=== PATIENT | male | born 1950 | race Caucasian/White ===

== ENCOUNTER → 2017-05-25 | Outpatient (CLI) | payer MEDICARE, OTHER ==
[~2017-05-25] MED LIST: ACET500C3 PO; CHOL200024 PO; DUTA0.5C PO; FURO80TA77 PO; GABA-826 PO; LEVO150T PO; LORA10TA3 PO; OMEG1CAP24 PO; PREG25CA PO; TAMS-11 PO; TAMS0.4C2 PO; TRAM50TA2 PO; [UNRECOGNIZED DRUG - CODE]; [UNRECOGNIZED DRUG - CODE] PO
== END | disposition home or self-care (01) ==
LOC: PETCFH 09:28
PROVIDERS: ATTEND Specialist
DX: C43.71 Malignant melanoma of right lower limb, including hip (principal)
CPT/HCPCS: 78816; A9552

== ENCOUNTER 2017-09-28 17:25 | Emergency (ER) | payer MEDICARE, OTHER ==
[~2017-09-28] VITALS: Ht 182.9 cm; Wt 96.0 kg
[2017-09-28 17:55] LABS: HEMATOCRIT 44.5 % (39.2-51.8); HEMOGLOBIN 15.2 g/dL (13.7-18.0); WHITE BLOOD COUNT 5.9 x10^3/uL (3.4-10)
[2017-09-28 18:06] LABS: ASPARTATE AMINO TRANSFERASE 30 U/L (15-37); BLOOD UREA NITROGEN 17 mg/dL (7-18)
[2017-09-28 19:42] VITALS: BP 125/69
== END 2017-09-28 20:18 | disposition home or self-care (01) ==
LOC: ED 20:12
DX: H57.8 Other specified disorders of eye and adnexa (principal); J32.9 Chronic sinusitis, unspecified; E03.9 Hypothyroidism, unspecified; N40.0 Benign prostatic hyperplasia without lower urinary tract symptoms; Z85.820 Personal history of malignant melanoma of skin
CPT/HCPCS: 36415; 70450; 71010; 80053; 85025; 93005; 99285

== ENCOUNTER → 2018-02-15 | Outpatient (CLI) | payer MEDICARE, OTHER | END | disposition home or self-care (01) | LOC: PETCFH 08:34 | PROVIDERS: ATTEND Specialist | DX: C43.71 Malignant melanoma of right lower limb, including hip (principal) | CPT/HCPCS: 78816; A9552 ==

== ENCOUNTER → 2018-06-13 | Outpatient (CLI) | payer MEDICARE, OTHER | END | disposition home or self-care (01) | LOC: CFH 10:10 | PROVIDERS: ATTEND Nurse Practitioner Primary Care | DX: R05 Cough (principal); E55.9 Vitamin D deficiency, unspecified; E03.9 Hypothyroidism, unspecified; E78.2 Mixed hyperlipidemia; Z79.899 Other long term (current) drug therapy | CPT/HCPCS: 71046 ==

== ENCOUNTER → 2018-09-13 | Outpatient (CLI) | payer MEDICARE, OTHER | END | disposition home or self-care (01) | LOC: CFH 08:44 | PROVIDERS: ATTEND Internal Medicine | DX: E03.4 Atrophy of thyroid (acquired) (principal); E03.9 Hypothyroidism, unspecified; E78.2 Mixed hyperlipidemia; E55.9 Vitamin D deficiency, unspecified; Z79.899 Other long term (current) drug therapy | CPT/HCPCS: 76536 ==

== ENCOUNTER → 2018-11-17 | Outpatient (CLI) | payer MEDICARE, OTHER | END | disposition home or self-care (01) | LOC: PETCFH 07:26 | PROVIDERS: ATTEND Specialist | DX: C43.71 Malignant melanoma of right lower limb, including hip (principal) | CPT/HCPCS: 78816; A9552 ==

== ENCOUNTER → 2019-02-02 | Outpatient (CLI) | payer MEDICARE, OTHER ==
[~2019-02-02] MED LIST changes: +LORA-247 PO; -LORA10TA3 PO; +OMNIPAQUE 350 MG/ML, 100ML BOTTLE ONE
[2019-02-02 11:30] LABS: CREATININE 1.13 mg/dL (0.7-1.3)
== END | disposition home or self-care (01) ==
LOC: RAD 10:53
PROVIDERS: ATTEND Specialist
DX: C43.71 Malignant melanoma of right lower limb, including hip (principal); R59.1 Generalized enlarged lymph nodes; M47.816 Spondylosis without myelopathy or radiculopathy, lumbar region; K40.90 Unilateral inguinal hernia, without obstruction or gangrene, not specified as recurrent
CPT/HCPCS: 36415; 71260; 74177; 82565; Q9967

== ENCOUNTER → 2019-05-21 | Outpatient (CLI) | payer MEDICARE, OTHER | END | disposition home or self-care (01) | LOC: CFH 12:31 | PROVIDERS: ATTEND Specialist | DX: K44.9 Diaphragmatic hernia without obstruction or gangrene (principal); C43.71 Malignant melanoma of right lower limb, including hip | CPT/HCPCS: 71260; 74177; Q9967 ==

== ENCOUNTER → 2019-10-03 | Outpatient (CLI) | payer MEDICARE, OTHER | END | disposition home or self-care (01) | LOC: CFH 13:58 | PROVIDERS: ATTEND Specialist | DX: C43.71 Malignant melanoma of right lower limb, including hip (principal); F17.200 Nicotine dependence, unspecified, uncomplicated | CPT/HCPCS: 71260; 74177; Q9967 ==

== ENCOUNTER → 2020-01-16 | Outpatient (CLI) | payer MEDICARE, OTHER ==
[~2020-01-16] MED LIST changes: -OMNIPAQUE 350 MG/ML, 100ML BOTTLE ONE
== END | disposition home or self-care (01) ==
LOC: PETCFH 08:43
PROVIDERS: ATTEND Specialist
DX: C43.71 Malignant melanoma of right lower limb, including hip (principal)
CPT/HCPCS: 78815; A9552

== ENCOUNTER → 2020-05-14 | Outpatient (CLI) | payer MEDICARE, OTHER | END | disposition home or self-care (01) | LOC: PETCFH 12:22 | PROVIDERS: ATTEND Specialist | DX: C43.71 Malignant melanoma of right lower limb, including hip (principal); K76.0 Fatty (change of) liver, not elsewhere classified; R59.0 Localized enlarged lymph nodes | CPT/HCPCS: 78816; A9552 ==

== ENCOUNTER → 2020-05-20 | Outpatient (CLI) | payer MEDICARE, OTHER ==
[~2020-05-20] MED LIST changes: +GADOTERATE 10 MMOL/20 ML SYR ONE
== END | disposition home or self-care (01) ==
LOC: RAD 12:14 → EDSTATUS 12:45
PROVIDERS: ATTEND Specialist
DX: C43.71 Malignant melanoma of right lower limb, including hip (principal)
CPT/HCPCS: 70553; A9575

== ENCOUNTER → 2020-08-27 | Outpatient (CLI) | payer MEDICARE, OTHER ==
[~2020-08-27] MED LIST changes: -GADOTERATE 10 MMOL/20 ML SYR ONE
== END | disposition home or self-care (01) ==
LOC: PETCFH 07:32
PROVIDERS: ATTEND Specialist
DX: C43.71 Malignant melanoma of right lower limb, including hip (principal); R19.00 Intra-abdominal and pelvic swelling, mass and lump, unspecified site
CPT/HCPCS: 78816; A9552

== ENCOUNTER → 2021-05-04 | Outpatient (CLI) | payer MEDICARE, OTHER | END | disposition home or self-care (01) | LOC: CFH 14:38 | PROVIDERS: ATTEND Specialist | DX: C43.71 Malignant melanoma of right lower limb, including hip (principal); N63.32 Unspecified lump in axillary tail of the left breast | CPT/HCPCS: 76642; 77062; 77066; G0279 ==

== ENCOUNTER → 2021-05-08 | Outpatient (CLI) | payer MEDICARE, OTHER ==
[~2021-05-08] MED LIST changes: +LIDOCAINE 1%-EPI 1:100K, 20ML ONE
== END | disposition home or self-care (01) ==
LOC: CFH 13:15
PROVIDERS: ATTEND Specialist
DX: C43.71 Malignant melanoma of right lower limb, including hip (principal); N63.32 Unspecified lump in axillary tail of the left breast
CPT/HCPCS: 76942; 88305